=== PATIENT | male | born 1995 | race Caucasian/White ===

== ENCOUNTER → 2020-06-05 | Outpatient (CLI) | payer BC ==
[~2020-06-05] MED LIST: NASONEX; PRD20T PO; SINGULAIR
--- NOTE | 2020-06-05 14:02 | Diagnostic Imaging Report ---
PROCEDURE: US Scrotum. TECHNIQUE: Multiple real-time grayscale images were obtained over the scrotum in various projections bilaterally. INDICATION: Left testicular pain. FINDINGS: Right testicle measures 4.6 x 2.4 x 2.9 cm and the left testicle measures 5.1 x 2.5 x 3.0 cm. Both testes demonstrate homogeneous echotexture. No discrete testicular mass is identified. There is normal blood flow to both testes. Epididymides are unremarkable. There is no hydrocele. There does appear to be a varicocele lateral to the left testicle. IMPRESSION: 1. No evidence of testicular mass or vascular compromise. 2. Left varicocele. Dictated by: Dictated on workstation # [id number]
== END ==
LOC: RAD 11:47
PROVIDERS: ATTEND Nurse Practitioner Family
DX: I86.1 Scrotal varices (principal)
CPT/HCPCS: 76870

== ENCOUNTER → 2022-04-30 | Outpatient (CLI) | payer SELFPAY ==
[2022-04-30 14:23] LABS: SEMEN VOLUME 8.1 ML (1.5-5.0)
== END ==
LOC: LAB 11:59
PROVIDERS: ATTEND Urology
DX: I86.1 Scrotal varices (principal)
CPT/HCPCS: 89320